=== PATIENT | male | born 2000 ===

== ENCOUNTER 2024-11-11 10:20 | Outpatient (REF) | payer MEDICAID, SELFPAY ==
[2024-11-11 15:58] LABS: HGB 15.1 g/dL (13.5-17.5); MCH 28.3 pg (27.0-33.0); MCHC 35.1 % (32.0-36.0); MCV 81 fL (80-95); Platelet Count 157 10^3/uL (130-400); RBC 5.34 10^6/uL (4.36-5.78); RDW 12.7 % (11.8-14.1); RDW-SD 36.1 fL
[2024-11-11 16:12] LABS: ALT 22 U/L (16-63); AST 18 U/L (15-37); Albumin 4.3 g/dL (3.4-5.0); Alkaline Phosphatase 65 U/L (46-116); Anion Gap 10.7 mmol/L (3-11); BUN 14 mg/dL (7-18); Bilirubin, Total 0.9 mg/dL (0.2-1.0); CO2 26.3 mmol/L (21.0-32.0); Calcium 9.6 mg/dL (8.5-10.1); Calculated LDL 100 mg/dL (<100); Chloride 106 mmol/L (98-107); Cholesterol 164 mg/dL (<200); Estimated GFR 108.46 (mL/min/1.73m2); Glucose 90 mg/dL (74-106); HDL Cholesterol 33 mg/dL (>or=40); Potassium 3.8 mmol/L (3.5-5.1); Sodium 143 mmol/L (136-145); Total Protein 7.4 g/dL (6.4-8.2); Triglyceride 155 mg/dL (<150)
== END 2024-11-11 10:21 | disposition home or self-care (01) ==
LOC: NCHCN 10:20
PROVIDERS: PCP Physician Assistant; Visit Provider Physician Assistant
DX: Z13.220 Encounter for screening for lipoid disorders (principal); Z13.6 Encounter for screening for cardiovascular disorders
CPT/HCPCS: 80053; 80061; 85027